=== PATIENT | male | born 1970 | race Caucasian/White ===

== ENCOUNTER 2016-07-01 17:57 | Emergency (ER) | payer OTHER ==
[~2016-07-01] VITALS: Ht 190.5 cm; Wt 114.3 kg
[~2016-07-01 17:57] MED LIST: FLOVENT HF0.044 MG/A INH; FLOVENT0.11 MG/Ac INH; MONTELUKAST SOD10 MG PO; OXYCODONE5 M1 PO; PREDNISONE10 MG PO; PROAIR HFA0.09 MG/Ac INH
--- NOTE | 2016-07-01 19:09 | RADIOLOGY REPORT ---
EXAMINATION: XR RIBS, LEFT CLINICAL INFORMATION: Rib pain and shortness of breath following lifting. COMPARISON: None. TECHNIQUE: Single PA view of the chest as well as six additional views of the left-sided ribs. FINDINGS: Single PA view of the chest demonstrates pulmonary hypoinflation and dependent bibasilar atelectasis. No grossly displaced left-sided rib fractures are identified. There are no pleural effusions or pneumothoraces. Cardiomediastinal contours are within normal limits for technique. Soft tissues appear unremarkable. IMPRESSION: Pulmonary hypoinflation. Otherwise, no acute cardiopulmonary abnormality. No acute grossly displaced left-sided rib fractures.
--- NOTE | 2016-07-01 19:15 | ED CARDIAC/CP/PALPITATIONS ---
History of Present Illness General Chief Complaint: General Adult Stated Complaint: RIB PAIN POST LIFTING Source: patient, family Exam Limitations: no limitations Vital Signs & Intake/Output Vital Signs & Intake/Output Vital Signs Date Time Temp Pulse Resp B/P Pulse O2 O2 Flow FiO2 Ox Delivery Rate 07/01 1931 96.8 88 18 160/96 98 Room Air 07/01 1929 98 Room Air 07/01 1801 96.8 86 20 158/101 98 Room Air Allergies Coded Allergies: MDX - Bee Venom (BEE VENOM) (Severe, ANAPHYLAXIS 08/10/14) MDX - Penicillin V (Severe, ANAPHYLAXIS 08/10/14) Reconcile Medications Albuterol Sulfate (Proair Hfa) 0.09 MG/Actuation CAIO 2 PUF INH Q6H PRN RESCUE (Reported) Cyclobenzaprine HCl 10 MG TABLET 1 TAB PO Q8P PAIN OR SPASM Fluticasone Propionate (Flovent Hfa) 0.044 MG/Actuation CAIO 2 PUFF INH BID ASTHMA/COPD (Reported) 44 MCG PER PUFF Ibuprofen 600 MG TABLET 1 TAB PO TID PRN PAIN with food OXYCODONE HCL (Oxycodone) 5 MG CAP 1 CAP PO TID . Triage Note: PT STATES THAT HE WAS LIFTING WEIGHTS WHEN HE FELT A POP IN HIS L SIDE RIB CAGE. PAIN HAS BEEN CONSTANT AND SHARP SINCE INCIDENT Triage Nurses Notes Reviewed? yes HPI: Patient was doing leg presses at the gym and felt a pop in his left lower chest. The pain is sharp and nonradiating. Pain worsens with any movement or deep breath. He rates the pain as 7 out of 10. Patient denies any shortness of breath. There are no fevers or chills. Patient denies any other pain or injury. Past History Travel History Traveled to [place] past 21 day No Medical History Any Pertinent Medical History? see below for history Neurological: NONE EENT: NONE Cardiovascular: hypertension, hyperlipidemia Respiratory: asthma Gastrointestinal: GERD, ACID REFLUX Hepatic: NONE Renal: NONE Musculoskeletal: NONE Psychiatric: NONE Endocrine: NONE Blood Disorders: NONE Cancer(s): NONE Surgical History Surgical History: non-contributory Psychosocial History What is your primary language Stateless Tobacco Use: Never used ETOH Use: occasional use Illicit Drug Use: denies illicit drug use Family History Hx Contributory? No Review of Systems Review of Systems Constitutional: Reports: no symptoms. EENTM: Reports: no symptoms. Respiratory: Reports: no symptoms. Cardiovascular: Reports: see HPI, chest pain. GI: Reports: no symptoms. Genitourinary: Reports: no symptoms. Musculoskeletal: Reports: no symptoms. Skin: Reports: no symptoms. Neurological/Psychological: Reports: no symptoms. Hematologic/Endocrine: Reports: no symptoms. Immunologic/Allergic: Reports: no symptoms. All Other Systems: Reviewed and Negative Physical Exam Physical Exam General Appearance: well developed/nourished, alert, awake Head: atraumatic, normal appearance Eyes: Bilateral: PERRL, EOMI. Ears, Nose, Throat: normal pharynx, normal ENT inspection Neck: normal inspection, supple, full range of motion, NO JVD Respiratory: normal breath sounds, no respiratory distress, lungs clear, POINT TENDERNESS TO PALP Cardiovascular: regular rate/rhythm, normal peripheral pulses Gastrointestinal: normal bowel sounds, soft, non-tender, no organomegaly Back: normal inspection, normal range of motion, NO CVA TENDERNESS Extremities: normal inspection, normal capillary refill, normal range of motion, no edema Neurologic/Psych: no motor/sensory deficits, awake, alert, oriented x 3, normal gait, normal mood/affect Skin: intact, normal color, warm/dry Lymphatic: no anterior cervical raman Core Measures ACS in differential dx? Yes ASA ordered for poss ACS? No-ACS ruled out Severe Sepsis Present: No Septic Shock Present: No Progress Differential Diagnosis: AMI, aortic dissection, costochondritis, musculoskeletal pain, myocarditis, pericarditis, pneumonia, pneumothorax, pulmonary embolism Plan of Care: CXR AND PAIN CONTROL Diagnostic Imaging: Viewed by Me: Radiology Read. Discussed w/RAD: Radiology Read. CXR Impression: PATIENT: OSVALDO NAIK PRESENT AGE: 45 PATIENT ACCOUNT NO: [id number] : 68 LOCATION: [facility] ORDERING PHYSICIAN: JAYLENE SCHAEFER DO (TBS) SERVICE DATE: 07/01/16 EXAM TYPE: RAD - XRY-RIBS UNILATERAL-LEFT EXAMINATION: XR RIBS, LEFT CLINICAL INFORMATION: Rib pain and shortness of breath following lifting. COMPARISON: None. TECHNIQUE: Single PA view of the chest as well as six additional views of the left-sided ribs. FINDINGS: Single PA view of the chest demonstrates pulmonary hypoinflation and dependent bibasilar atelectasis. No grossly displaced left-sided rib fractures are identified. There are no pleural effusions or pneumothoraces. Cardiomediastinal contours are within normal limits for technique. Soft tissues appear unremarkable. IMPRESSION: Pulmonary hypoinflation. Otherwise, no acute cardiopulmonary abnormality. No acute grossly displaced left-sided rib fractures. DICTATED BY: RAUL MCBRIDE MD DATE/TIME DICTATED:07/01/161903 BI SPECIALIST:HUONG DATE/TIME TRANSCRIBED:07/01/161903 CONFIDENTIAL, DO NOT COPY WITHOUT APPROPRIATE AUTHORIZATION. <Electronically signed in Other Vendor System> SIGNED BY: RAUL MCBRIDE MD 07/01/161908 Initial ED EKG: NSR, no ST T wave changes Departure Departure Disposition: HOME OR SELF CARE Condition: Stable Clinical Impression Primary Impression: Chest wall pain Referrals: SAM ENRIQUE JIMENEZ (PCP/Family) Additional Instructions: MAKE SURE YOU TAKE DEEP BREATHS RETURN IF YOU DEVELOP SHORTNESS OF BREATH, A PRODUCTIVE COUGH, FEVERS OR FOR ANY CONCERNS. Departure Forms: Customer Survey General Discharge Information Prescriptions: Current Visit Scripts Cyclobenzaprine HCl 1 TAB PO Q8P #20 TAB Ibuprofen 1 TAB PO TID PRN PAIN #20 TAB with food Critical Care Note Critical Care Note Critical Care Time: non-applicable
[2016-07-01] MEDS ORDERED: CYCLOBENZAPRINE10 M1 PO (19:21)
[2016-07-01] MEDS ORDERED: IBUPROFEN600 M1 PO (19:21)
[2016-07-01 19:32] VITALS: BP 160/96
== END 2016-07-01 19:32 ==
LOC: ERH 17:57
DX: R07.89 Other chest pain (principal)
CPT/HCPCS: 71100-LT